=== PATIENT | female | born 1965 | race Two or more races ===

== ENCOUNTER 2020-12-20 13:24 | Emergency (ER) | payer OTHER ==
[~2020-12-20] VITALS: Ht 160 cm; Wt 59.0 kg
[2020-12-20] MEDS ORDERED: ZESTRIL5 MG (13:59)
[2020-12-20] MEDS ORDERED: NORFLEX100MG PO (14:39)
[2020-12-20] MEDS ORDERED: KETO10TA2 PO (14:39)
[2020-12-20] MEDS ORDERED: ZANAFLEX4 M1 PO (14:40)
== END 2020-12-20 14:43 | disposition home or self-care (01) ==
LOC: ER 13:24
DX: M54.2 Cervicalgia (principal)

== ENCOUNTER 2021-03-24 08:00 | Outpatient (CLI) | payer OTHER ==
[~2021-03-24 08:00] MED LIST: KETO10TA2 PO; NORFLEX100MG PO; ZANAFLEX4 M1 PO; ZESTRIL5 MG
== END 2021-03-24 08:30 | disposition home or self-care (01) ==
LOC: PPH VACUNA 08:00
PROVIDERS: ATTEND Emergency Medicine Pediatric Emergency Medicine
DX: Z23 Encounter for immunization (principal)

== ENCOUNTER 2021-04-09 08:00 | Outpatient (CLI) | payer OTHER | END 2021-04-09 08:30 | disposition home or self-care (01) | LOC: PPH VACUNA 08:00 | PROVIDERS: ATTEND Emergency Medicine Pediatric Emergency Medicine | DX: Z23 Encounter for immunization (principal) ==

== ENCOUNTER 2021-06-13 12:27 | Outpatient (CLI) | payer OTHER | END 2021-06-13 15:00 | disposition home or self-care (01) | LOC: LAB 12:27 | DX: Z03.818 Encounter for observation for suspected exposure to other biological agents ruled out (principal) ==

== ENCOUNTER 2021-08-29 07:16 | Outpatient (CLI) | payer OTHER | END 2021-08-29 07:17 | disposition home or self-care (01) | LOC: LAB 07:16 | PROVIDERS: ATTEND General Practice | DX: E78.5 Hyperlipidemia, unspecified (principal); E55.9 Vitamin D deficiency, unspecified; N39.0 Urinary tract infection, site not specified; Z00.00 Encounter for general adult medical examination without abnormal findings ==

== ENCOUNTER 2021-11-28 09:24 | Outpatient (CLI) | payer OTHER | END 2021-11-28 12:41 | disposition home or self-care (01) | LOC: LAB 09:24 | PROVIDERS: ATTEND Emergency Medicine Pediatric Emergency Medicine | DX: U07.1 COVID-19 (principal) ==

== ENCOUNTER 2022-03-18 14:27 | Outpatient (CLI) | payer OTHER ==
[2022-03-25] MEDS ORDERED: METAXALONE800 MG PO (11:31)
== END 2022-03-18 14:32 | disposition home or self-care (01) ==
LOC: PPH VACUNA 14:27
PROVIDERS: ATTEND Emergency Medicine Pediatric Emergency Medicine
DX: Z23 Encounter for immunization (principal)

== ENCOUNTER → 2022-04-22 08:10 | Outpatient (CLI) | payer OTHER ==
[~2022-04-22 08:10] MED LIST changes: +METAXALONE800 MG PO
== END | disposition home or self-care (01) ==
LOC: LAB 08:10
PROVIDERS: ATTEND General Practice
DX: Z00.00 Encounter for general adult medical examination without abnormal findings (principal); E78.5 Hyperlipidemia, unspecified; E55.9 Vitamin D deficiency, unspecified; N39.0 Urinary tract infection, site not specified; R42 Dizziness and giddiness; R10.2 Pelvic and perineal pain

== ENCOUNTER 2022-06-04 14:05 | Outpatient (CLI) | payer OTHER | END 2022-06-04 14:15 | disposition home or self-care (01) | LOC: PPH VACUNA 14:05 | PROVIDERS: ATTEND Emergency Medicine Pediatric Emergency Medicine | DX: Z23 Encounter for immunization (principal) ==

== ENCOUNTER → 2022-09-11 08:38 | Outpatient (CLI) | payer OTHER | END | disposition home or self-care (01) | LOC: LAB 08:38 | PROVIDERS: ATTEND General Practice | DX: R00.2 Palpitations (principal); Z00.00 Encounter for general adult medical examination without abnormal findings; E78.5 Hyperlipidemia, unspecified; E55.9 Vitamin D deficiency, unspecified; R42 Dizziness and giddiness; R10.9 Unspecified abdominal pain; R10.2 Pelvic and perineal pain ==

== ENCOUNTER 2023-04-02 10:00 | Outpatient (CLI) | payer OTHER | END 2023-04-02 10:10 | disposition home or self-care (01) | LOC: PPH VACUNA 10:00 | PROVIDERS: ATTEND Emergency Medicine Pediatric Emergency Medicine | DX: Z23 Encounter for immunization (principal) ==

== ENCOUNTER 2024-04-19 03:00 | Outpatient (CLI) | payer OTHER | END 2024-04-19 03:15 | disposition home or self-care (01) | LOC: PPH VACUNA 03:00 | PROVIDERS: ATTEND Emergency Medicine Pediatric Emergency Medicine | DX: Z23 Encounter for immunization (principal) ==

== ENCOUNTER 2024-06-07 08:03 | Emergency (ER) | payer OTHER ==
[~2024-06-07] VITALS: Ht 160 cm; Wt 61.2 kg
[2024-06-07 08:06] VITALS: BP 118/72; O2SAT 99
[2024-06-07] MEDS ORDERED: LEVALBUTEROL HCL 1.25 MG/3 ML SOLUTION IH SCH (08:15)
[2024-06-07] MEDS ORDERED: GUAIFENESIN/DEXTROMETHORPHAN 10ML BLIST.PACK PO ONE (08:15)
[2024-06-07] MEDS ORDERED: METHYLPREDNISOLONE SOD SUCC 125 MG VIAL IV ONE (08:15)
[2024-06-07] MEDS ORDERED: AZITHROMYCIN 500 MG TABLET PO ONE (08:15)
[2024-06-07 09:04] LABS: HEMATOCRIT 39.2 % (36.0-45.00); HEMOGLOBIN 13.3 g/dL (12.0-15.00); MEAN CELL VOLUME 91.1 fL (80.00-100.00); MEAN CORPUSCULAR HEMOGLOBIN 30.9 pg (27.00-32.0); MEAN CORPUSCULAR HGB CONC 33.9 g/dl (32.0-36.0); PLATELET COUNT 269 K/uL (150-450); RED BLOOD COUNT 4.31 M/uL (4.00-6.00); RED CELL DISTRIBUTION WIDTH 14.6 % (11.5-14.5)
[2024-06-07] MEDS ORDERED: ZITHROMAX500 MG PO (10:09)
[2024-06-07] MEDS ORDERED: XOPENEX CO1.25 MG/0. IH (10:09)
== END 2024-06-07 11:19 | disposition home or self-care (01) ==
LOC: ER 08:03
PROVIDERS: General Practice
DX: J06.9 Acute upper respiratory infection, unspecified (principal); Z20.822 Contact with and (suspected) exposure to COVID-19; I10 Essential (primary) hypertension; Z87.09 Personal history of other diseases of the respiratory system

== ENCOUNTER 2024-09-04 06:53 | Outpatient (CLI) | payer OTHER ==
[~2024-09-04 06:53] MED LIST changes: +XOPENEX CO1.25 MG/0. IH; +ZITHROMAX500 MG PO
[2024-09-04 09:37] LABS: PH,URINE 6.5 (5.0-8.0); URINE APPEARANCE Clear; URINE BILIRRUBIN Negative (NEGATIVE); URINE BLOOD Negative; URINE COLOR Yellow; URINE GLUCOSE Negative (NEGATIVE); URINE KETONE Negative (NEGATIVE); URINE LEUKOCYTE Negative; URINE NITRATE Negative; URINE PROTEIN Negative (NEGATIVE); URINE UROBILINOGEN 0.2 E.U./dl
[2024-09-04 09:39] LABS: URINE BACTERIA 36.6 uL (0.0-1933); URINE EPITHELIAL CELLS 1.7 uL (0.0-38.8); URINE RBC 6.3 uL (0.0-20.8)
[2024-09-04 10:06] LABS: URINE WBC 1.4 uL (0.0-23.2)
[2024-09-05 09:05] LABS: PROGESTERONA < 0.1 ng/mL (.)
== END 2024-09-04 13:24 | disposition home or self-care (01) ==
LOC: LAB 06:53
DX: Z12.11 Encounter for screening for malignant neoplasm of colon (principal); D64.9 Anemia, unspecified; E03.8 Other specified hypothyroidism; N95.1 Menopausal and female climacteric states; I10 Essential (primary) hypertension; C51.9 Malignant neoplasm of vulva, unspecified; N30.00 Acute cystitis without hematuria; E83.51 Hypocalcemia; A64 Unspecified sexually transmitted disease; N39.0 Urinary tract infection, site not specified; R97.8 Other abnormal tumor markers; R79.89 Other specified abnormal findings of blood chemistry; E55.9 Vitamin D deficiency, unspecified; A60.9 Anogenital herpesviral infection, unspecified

== ENCOUNTER 2024-09-19 15:19 | Outpatient (CLI) | payer OTHER | END 2024-09-19 15:20 | disposition home or self-care (01) | LOC: RAD 15:19 | PROVIDERS: ATTEND Obstetrics & Gynecology Gynecology | DX: R31.9 Hematuria, unspecified (principal) ==

== ENCOUNTER 2025-04-19 13:52 | Outpatient (CLI) | payer OTHER | END 2025-04-19 14:02 | disposition home or self-care (01) | LOC: PPH VACUNA 13:52 | PROVIDERS: ATTEND Emergency Medicine Pediatric Emergency Medicine | DX: Z23 Encounter for immunization (principal) ==